=== PATIENT | female | born 1950 | race Two or more races ===

== ENCOUNTER → 2024-09-19 | Outpatient (BNVA) | payer MEDICARE, MEDICAID, SELFPAY | END | disposition home or self-care (01) | PROVIDERS: PCP Obstetrics & Gynecology; Referring Provider Obstetrics & Gynecology; Visit Provider Urology | DX: N81.10 Cystocele, unspecified (principal); R31.29 Other microscopic hematuria | CPT/HCPCS: 81003; 99212; G0463 ==

== ENCOUNTER → 2025-03-21 | Outpatient (BNVA) | payer MEDICARE, MEDICAID, SELFPAY | END | disposition home or self-care (01) | PROVIDERS: PCP Obstetrics & Gynecology; Referring Provider Obstetrics & Gynecology; Visit Provider Urology | DX: N81.10 Cystocele, unspecified (principal) | CPT/HCPCS: 81003; 99212; G0463 ==